=== PATIENT | female | born 1960 | race Caucasian/White ===

== ENCOUNTER 2019-09-05 18:07 | Emergency (ER) | payer OTHER ==
[~2019-09-05] VITALS: Ht 154.9 cm; Wt 51.3 kg
[~2019-09-05 18:07] MED LIST: ATOR40TA59 PO; BENA1TAB7 PO; DEXL60CA2 PO; LEVO75TA5 PO
--- NOTE | 2019-09-05 18:58 | PHYS DOC ---
Past Medical History Past Medical History: High Cholesterol, Hypertension, Hypothyroid Past Surgical History: Cholecystectomy Additional Past Surgical Histo: BILAT. CARPEL TUNNEL, Alcohol Use: Rarely Drug Use: None Adult General Chief Complaint Chief Complaint: UPPER EXTREMITY PAIN HPI HPI Patient is a 59 year old female who presents with urgent care today for left upper arm pain has been going on since August 13, 2019. The pain is in the left upper outer arm only and does not radiate. The patient is asked what this pain feels like she states "it's just pain". She rates her pain a 6 out of 10. Patient states she has been sick for the last couple weeks with a cough and runny nose and upper respiratory infection. She had stated that the cough has gotten worse in her symptoms especially at night. The paperwork that she brought from the urgent care stated that they did a chest x-ray which was negative and the doctor put her on a Z-Dewey, prednisone, Tessalon Perles. The physician also did a humerus x-ray which showed no acute findings. The physician called and gave report to Isaac Perez NP. The physician said that he also did a EKG that showed no acute symptoms. Patient does smoke less than a half pack a day for the last 30 years, has hypertension and hyperlipidemia and a family history of premature CAD with her father having a heart attack at 60. Review of Systems Review of Systems HENT: nasal congestion or denies sore throat [] Respiratory: cough or shortness of breath [] Cardiovascular: No additional information not addressed in HPI [] Musculoskeletal: Left upper arm pain. Denies back pain or joint pain [] I All other systems were reviewed and found to be within normal limits, except as documented in this note. Allergies Allergies Allergies Coded Allergies Type Severity Reaction Last Updated Verified No Known Drug Allergies 08/05/18 No Physical Exam Physical Exam Constitutional: Well developed, well nourished, no acute distress, non-toxic appearance. [] HENT: Normocephalic, atraumatic, bilateral external ears normal, oropharynx moist, no oral exudates, nose normal. [] Eyes: PERRLA, EOMI, conjunctiva normal, no discharge. [] Neck: Normal range of motion, no tenderness, supple, no stridor. [] Cardiovascular:Heart rate regular rhythm, no murmur [] Lungs & Thorax: Bilateral breath sounds clear to auscultation [] Abdomen: Bowel sounds normal, soft, no tenderness, no masses, no pulsatile masses. [] Skin: Warm, dry, no erythema, no rash. [] Extremities: Left upper outer arm at deltoid tenderness, no cyanosis, no clubbing, ROM intact, no edema. [] Neurologic: Alert and oriented X 3, normal motor function, normal sensory function, no focal deficits noted. [] Psychologic: Affect normal, judgement normal, mood normal. [] Current Patient Data Vital Signs Vital Signs Date Time Temp Pulse Resp B/P (MAP) Pulse Ox O2 Delivery O2 Flow Rate FiO2 09/05/19 19:12 87 16 143/77 (99) 97 Room Air 09/05/19 18:20 97.9 97.9 Lab Values Laboratory Tests Test 09/05/19 19:20 White Blood Count 5.0 x10^3/uL (4.0-11.0) Red Blood Count 4.19 x10^6/uL (3.50-5.40) Hemoglobin 14.5 g/dL (12.0-15.5) Hematocrit 41.8 % (36.0-47.0) Mean Corpuscular Volume 100 fL (79-100) Mean Corpuscular Hemoglobin 35 pg (25-35) Mean Corpuscular Hemoglobin Concent 35 g/dL (31-37) Red Cell Distribution Width 13.5 % (11.5-14.5) Platelet Count 259 x10^3/uL (140-400) Neutrophils (%) (Auto) 68 % (31-73) Lymphocytes (%) (Auto) 22 % (24-48) L Monocytes (%) (Auto) 7 % (0-9) Eosinophils (%) (Auto) 1 % (0-3) Basophils (%) (Auto) 1 % (0-3) Neutrophils # (Auto) 3.4 x10^3/uL (1.8-7.7) Lymphocytes # (Auto) 1.1 x10^3/uL (1.0-4.8) Monocytes # (Auto) 0.4 x10^3/uL (0.0-1.1) Eosinophils # (Auto) 0.1 x10^3/uL (0.0-0.7) Basophils # (Auto) 0.1 x10^3/uL (0.0-0.2) Prothrombin Time 11.9 SEC (11.7-14.0) Prothrombin Time INR 0.9 (0.8-1.1) Sodium Level 145 mmol/L (136-145) Potassium Level 3.5 mmol/L (3.5-5.1) Chloride Level 105 mmol/L (98-107) Carbon Dioxide Level 28 mmol/L (21-32) Anion Gap 12 (6-14) Blood Urea Nitrogen 21 mg/dL (7-20) H Creatinine 1.0 mg/dL (0.6-1.0) Estimated GFR (Cockcroft-Gault) 56.9 BUN/Creatinine Ratio 21 (6-20) H Glucose Level 83 mg/dL (70-99) Calcium Level 9.5 mg/dL (8.5-10.1) Total Bilirubin 0.4 mg/dL (0.2-1.0) Aspartate Amino Transferase (AST) 29 U/L (15-37) Alanine Aminotransferase (ALT) 24 U/L (14-59) Alkaline Phosphatase 111 U/L (46-116) Troponin I Quantitative < 0.017 ng/mL (0.000-0.055) Total Protein 8.1 g/dL (6.4-8.2) Albumin 4.2 g/dL (3.4-5.0) Albumin/Globulin Ratio 1.1 (1.0-1.7) Laboratory Tests 09/05/19 19:20 Laboratory Tests 09/05/19 19:20 EKG EKG NSR and no STEMI[] Interpretation Time: [address] Saeed Radiology/Procedures Radiology/Procedures [] Impressions: [facility] [address] [place], [place] [id number] IMAGING REPORT Signed PATIENT: ANG HANKS ACCOUNT: [id number] : 1960 LOCATION: ER AGE: 59 SEX: F EXAM STATUS: REG ER ORD. PHYSICIAN: SHADE MARCOS APRN REASON: COUGH PROCEDURE: CHEST PA & LATERAL CHEST PA LATERAL History: Cough Comparison: None. Findings: No consolidation or pleural effusion. Normal heart size. Calcified lower lung granulomas. Surgical clips upper abdomen. Impression: 1. No acute cardiopulmonary process. Electronically signed by: Aric Amador DO (09/05/2019 7:06 PM) [facility] DICTATED and SIGNED BY: ARIC AMADOR DO DATE: 09/05/191905 Course & Med Decision Making Course & Med Decision Making Patient is a 59 year old female who presents with urgent care today for left upper arm pain has been going on since August 13, 2019. The pain is in the left upper outer arm only and does not radiate. The patient is asked what this pain feels like she states "it's just pain". She rates her pain a 6 out of 10. Patient states she has been sick for the last couple weeks with a cough and runny nose and upper respiratory infection. She had stated that the cough has gotten worse in her symptoms especially at night. The paperwork that she brought from the urgent care stated that they did a chest x-ray which was negative and the doctor put her on a Z-Dewey, prednisone, Tessalon Perles. The physician also did a humerus x-ray which showed no acute findings. The physician called and gave report to Isaac Perez NP. The physician said that he also did a EKG that showed no acute symptoms. Patient does smoke less than a half pack a day for the last 30 years, has hypertension and hyperlipidemia and a family history of premature CAD with her father having a heart attack at 60. Patient currently denies chest pain, shortness of air, numbness or tingling, vomiting, abdominal pain, nausea, dizziness, headache, fevers. There is no unilateral arm or leg swelling. Skin is pink warm and dry. Radial pulses are strong and present. Cap refill less than 3 seconds. Patient denies the extremity going cold having skin color changes. Patient has no weakness in the arm. Patient does have tenderness with palpation to the left upper outer arm in the deltoid region. Lungs are akshat ar to auscultation in all lobes. Patient is ambulatory with a steady gait. Speaks in full clear sentences. PERRLA. Alert and oriented. Blood work unremarkable. EKG NSR. Patient continues to be asymptomatic for chest pain. I have consulted with Dr Saeed on this patient. He also feels that this patient does not need a US to check for DVT in the effect arm as there is no swelling, skin, sensation, or temperature. Patient is stable and to follow up with her primary care provider. Dragon Disclaimer Dragon Disclaimer This electronic medical record was generated, in whole or in part, using a voice recognition dictation system. The HEART Score for CP Pts HEART Score for Chest Pain: HEART Score for Chest Pain Response (Comments) Value History Slighlty/Non-Suspicious 0 ECG Normal 0 Age >45 - < 65 1 Risk Factors >3 Risk Factors or Hx CAD 2 Troponin < Normal Limit 0 Total 3 Risk Factors: Risk Factors: DM, Current or recent (<one month) smoker, HTN, HLP, family his tory of CAD, obesity. Risk Scores: Score 0 - 3: 2.5% MACE over next 6 weeks - Discharge Home Score 4 - 6: 20.3% MACE over next 6 weeks - Admit for Clinical Observation Score 7 - 10: 72.7% MACE over next 6 weeks - Early Invasive Strategies Departure Departure Impression: Primary Impression: Extremity pain Disposition: 01 HOME, SELF-CARE Condition: STABLE Referrals: NIRALI BRICENO (PCP) Patient Instructions: Medical Screening Exam Additional Instructions: Follow up with primary care provider. Use Ibuprofen for pain. Also try ice and heat. Problem Qualifiers Primary Impression: Extremity pain Extremity pain location: upper arm Laterality: left Qualified Codes: M79 .622 - Pain in left upper arm SHADE MARCOS DATA TRANSCRIBER Sep 05, 2019 18:58
--- NOTE | 2019-09-05 19:09 | RAD ---
CHEST PA LATERAL History: Cough Comparison: None. Findings: No consolidation or pleural effusion. Normal heart size. Calcified lower lung granulomas. Surgical clips upper abdomen. Impression: 1. No acute cardiopulmonary process. Electronically signed by: Aric Amador DO (09/05/2019 7:06 PM) [facility]
[2019-09-05 19:29] LABS: BASO # 0.1 x10^3/uL (0.0-0.2); BASO % 1 % (0-3); EOS # 0.1 x10^3/uL (0.0-0.7); EOS % 1 % (0-3); HEMATOCRIT 41.8 % (36.0-47.0); HEMOGLOBIN 14.5 g/dL (12.0-15.5); LYMPH # 1.1 x10^3/uL (1.0-4.8); LYMPH % 22 % (24-48); MEAN CORPUSCULAR HEMOGLOBIN 35 pg (25-35); MEAN CORPUSCULAR HGB CONC 35 g/dL (31-37); MEAN CORPUSCULAR VOLUME 100 fL (79-100); MONO # 0.4 x10^3/uL (0.0-1.1); MONO % 7 % (0-9); NEUT # 3.4 x10^3/uL (1.8-7.7); NEUT % 68 % (31-73); PLATELET COUNT 259 x10^3/uL (140-400); RED BLOOD COUNT 4.19 x10^6/uL (3.50-5.40); RED CELL DISTRIBUTION WIDTH 13.5 % (11.5-14.5)
[2019-09-05 19:37] LABS: CALCIUM 9.5 mg/dL (8.5-10.1); GFR 56.9; POTASSIUM 3.5 mmol/L (3.5-5.1)
[2019-09-05 19:39] LABS: PROTHROMBIN TIME PATIENT 11.9 SEC (11.7-14.0)
[2019-09-05 19:40] VITALS: BP 112/69
[2019-09-05 19:43] LABS: ALBUMIN 4.2 g/dL (3.4-5.0); ALBUMIN/GLOBULIN RATIO 1.1 (1.0-1.7); TOTAL BILIRUBIN 0.4 mg/dL (0.2-1.0); TOTAL PROTEIN 8.1 g/dL (6.4-8.2)
--- NOTE | 2019-09-06 06:18 | EKG ---
[facility] [address] [place] [address] Test Date: 2019-09-05 Test Time: 19:23:01 Pat Name: ANG HANKS Department: Room: Gender: F [employer] Operator: : 1960 Requested By: SHADE MARCOS Order Number: [id number] Reading MD: Measurements Intervals [place] Rate: 88 P: 54 VA: 140 QRS: 11 QRSD: 78 T: 17 QT: 378 QTc: 461 Interpretive Statements SINUS RHYTHM NO SPECIFIC ECG ABNORMALITIES RI6.01 No previous ECG available for comparison
== END 2019-09-05 20:19 | disposition home or self-care (01) ==
LOC: ER 18:07
DX: M79.622 Pain in left upper arm (principal); E78.00 Pure hypercholesterolemia, unspecified; I10 Essential (primary) hypertension; E03.9 Hypothyroidism, unspecified
CPT/HCPCS: 36415; 71046; 80053; 84484; 85025; 85610; 93005; 99285-25